=== PATIENT | female | born 1985 | race Caucasian/White ===

== ENCOUNTER 2024-01-28 17:20 | Emergency (ER) | payer BC, SELFPAY ==
[2024-01-28 17:24] VITALS: BP 131/86; PULSE 83; RESP 18; TEMP 37.1; O2SAT 98; BMI 23.9
--- NOTE | 2024-01-28 17:57 | ED.GENADULT ---
HPI - General Adult General Date Seen: 01/28/24 Chief complaint: Head Injury/Pain Stated complaint: Fish hook in face Time Seen by Provider: 01/28/24 17:20 Source: patient Mode of arrival: ambulatory Limitations: no limitations History of Present Illness HPI narrative: Patient is a 38-year-old female presenting to emergency department for a fishhook to her left cheek just lateral to the nose. No other injuries noted. This happened right before she arrived. They were unable to pull it out at home. The and is Barbed and imbedded within the face. Related Data Home Medications ?Medication ?Instructions ?Recorded ?Confirmed No Known Home Medications 01/28/24 01/28/24 Allergies Allergy/AdvReac Type Severity Reaction Status Date / Time sulfamethoxazole Allergy Mild Verified 01/28/24 17:29 [From Bactrim] trimethoprim [From Bactrim] Allergy Mild Verified 01/28/24 17:29 Review of Systems Narrative: Pertinent systems reviewed and were negative unless stated in HPI Exam Narrative: Exam Narrative: Const: Well-nourished, Well-developed, in mild distress Eyes: PERRL, no conjunctival injection, and symmetrical lids HENT: Atraumatic external nose and ears. Moist mucous membranes. barbed fishhook noted to left cheek MSK:Extremities w/o deformity, Normal Active ROM Skin: Warm, Dry. Neuro: Normal Muscle tone, No focal neurological deficits. Psych: Awake, Alert, & Oriented x3. Appropriate mood and affect. Const: Vital Signs, click to edit/add: Vital Signs - 24 hr 01/28/24 17:24 Temperature 98.8 F Pulse Rate [Right Pulse Oximeter] 83 Respiratory Rate 18 Blood Pressure [Ri ght Upper Arm] 131/86 Pulse Oximetry 98 Oxygen Delivery Me thod Room Air Course Vital Signs Vital signs: Initial Vital Signs Temperature 98.8 F 01/28/24 17:24 Temperature Source Temporal Artery Scan 01/28/24 17:24 Pulse Rate 83 01/28/24 17:24 Pulse Rhythm Regular 01/28/24 17:24 Pulse Strength 3+ Normal 01/28/24 17:24 Respiratory Rate 18 01/28/24 17:24 Blood Pressure 131/86 01/28/24 17:24 Blood Pressure Mean 101 01/28/24 17:24 Blood Pressure Position Sitting 09/07/24 17:24 Pulse Oximetry 98 01/28/24 17:24 Oxygen Delivery Method Room Air 01/28/24 17:24 Vital Signs Temperature 98.8 F 01/28/24 17:24 Pulse Rate 83 01/28/24 17:24 Respiratory Rate 18 01/28/24 17:24 Blood Pressure 131/86 01/28/24 17:24 Pulse Oximetry 98 01/28/24 17:24 Oxygen Delivery Method Room Air 01/28/24 17:24 Temperature 98.8 F 01/28/24 17:24 Pulse Rate 83 01/28/24 17:24 Respiratory Rate 18 01/28/24 17:24 Blood Pressure 131/86 01/28/24 17:24 Pulse Oximetry 98 01/28/24 17:24 Oxygen Delivery Method Room Air 01/28/24 17:24 Medical Decision Making MDM Narrative Medical decision making narrative: Patient is a 38-year-old female presenting for fishhook to her left cheek. It is imbedded dressed and I will need to numb the area up to pull the fishhook out. Also used an 11 blade to try and make small incisions around the fistula to make it easier to remove. Has a was successfully remove the fishhook in left about a 2 mm laceration that covered with a Steri-Strip. Considering this was a fishhook that was within the water and it is a puncture wound I will start her on antibiotics. She is agreeable to this plan. Cipro was prescribed. Last tetanus was 11 years ago so this was updated. Discharge Plan Discharge Clinical Impression: Puncture wound of face Qualifiers: Encounter type: initial encounter Qualified Code(s): S01.83XA - Puncture wound without foreign body of other part of head, initial encounter Patient Disposition: Home, Self-Care Condition: Improved Instructions: Puncture Wound (ED) Additional Instructions: Antibiotics were prescribed through [facility]. Return to emergency department for new or worsening symptoms. There may be some worsening erythema around the area tomorrow was lungs is not continue to get bigger she is most likely just inflammatory and not infection. To help with scar appearance in 1 week start placing sunscreen over the wound every time you go outside for the next 6 months Prescriptions: No Action No Known Home Medications Stand Alone Forms: MyHealth Info Instructions
[2024-01-28] MEDS: TETANUS/DIPHTH/PERTUSSIS 0.5 ML SYRINGE IM (18:11)
== END 2024-01-28 18:12 | disposition home or self-care (01) ==
LOC: ED 18:04
PROVIDERS: Emergency Provider Student in an Organized Health Care Education/Training Program
DX: S01.442A Puncture wound with foreign body of left cheek and temporomandibular area, initial encounter (principal); W45.8XXA Other foreign body or object entering through skin, initial encounter; Z23 Encounter for immunization
CPT/HCPCS: 10120; 90471; 90715; 99282; 99283